=== PATIENT | male | born 1970 | race Hispanic/Latino ===

== ENCOUNTER 2018-01-09 06:10 | Emergency (ER) | payer BC ==
[~2018-01-09 06:10] MED LIST: GLIM4TAB3 PO; METF-446 PO
[2018-01-09] MEDS ORDERED: METHYLPREDNISOLONE SOD SUCC 125MG/2ML VIAL ONE (07:17)
[2018-01-09] MEDS ORDERED: FAMOTIDINE 20MG TAB 20 MG TAB ONE (07:17)
[2018-01-09] MEDS ORDERED: DiphenhydrAMINE HCL 50 MG/ML VIAL ONE (07:17)
== END 2018-01-09 08:32 | disposition home or self-care (01) ==
LOC: EDH 06:10
DX: L23.9 Allergic contact dermatitis, unspecified cause (principal); E11.9 Type 2 diabetes mellitus without complications; Z88.0 Allergy status to penicillin; Z72.0 Tobacco use; Z79.84 Long term (current) use of oral hypoglycemic drugs; Z90.49 Acquired absence of other specified parts of digestive tract
CPT/HCPCS: 82948; 96372 ×2; 99284; J1200; J2930

== ENCOUNTER 2018-04-12 07:14 | Emergency (ER) | payer BC | END 2018-04-12 08:01 | disposition home or self-care (01) | LOC: EDH 07:14 | DX: B02.9 Zoster without complications (principal); E11.9 Type 2 diabetes mellitus without complications; Z90.49 Acquired absence of other specified parts of digestive tract; Z88.0 Allergy status to penicillin ==

== ENCOUNTER 2022-06-18 12:43 | Emergency (ER) | payer BC ==
[~2022-06-18] VITALS: Ht 177.8 cm; Wt 86.2 kg
[~2022-06-18 12:43] MED LIST changes: -GLIM4TAB3 PO; +GLIM4TAB36 PO
[2022-06-18 14:26] LABS: APPEARANCE,URINE CLEAR (CLEAR); BILIRUBIN,URINE NEGATIVE (NEGATIVE); COLOR,URINE COLORLESS (YELLOW); GLUCOSE, URINE (UA) >=1000 mg/dL (NEGATIVE); KETONES,URINE NEGATIVE (NEGATIVE); LEUKOCYTE ESTERASE ,URINE NEGATIVE Leu/uL (NEGATIVE); NITRATE,URINE NEGATIVE (NEGATIVE); OCCULT BLOOD,URINE NEGATIVE (NEGATIVE); PROTEIN,URINE NEGATIVE (NEGATIVE); UROBILINOGEN,URINE 0.2 mg/dL (0.2-1.0)
[2022-06-18 14:33] LABS: SQUAMOUS EPITHELIAL CELL,UR RARE /HPF (0-2); WBC,URINE 0-1 /HPF (0-1)
[2022-06-18] MEDS ORDERED: IBUP-2070 PO (16:19)
[2022-06-18 16:22] VITALS: BP 118/72
[2022-06-18] MEDS ORDERED: KETOROLAC 60 MG VIAL (30MG/ML) IM ONE (16:30)
== END 2022-06-18 16:47 | disposition home or self-care (01) ==
LOC: EDH 12:43
DX: R10.9 Unspecified abdominal pain (principal); E11.9 Type 2 diabetes mellitus without complications; Z88.0 Allergy status to penicillin; Z79.84 Long term (current) use of oral hypoglycemic drugs; Z90.49 Acquired absence of other specified parts of digestive tract; Z98.890 Other specified postprocedural states
CPT/HCPCS: 99284; 74176; 81001; 96372; J1885